=== PATIENT | female | born 1970 | race Caucasian/White ===

== ENCOUNTER 2017-03-11 13:52 | Emergency (ER) | payer MEDICAID ==
[2017-03-11 14:08] VITALS: TEMP 98.4; O2SAT 100
[2017-03-11] MEDS ORDERED: Sodium Chloride 0.9% 1,000 ML IV ONE (14:26)
[2017-03-11] MEDS ORDERED: Sodium Chloride 0.9% 1,000 ML ONE (14:34)
--- NOTE | 2017-03-11 14:36 | C.PDOC ---
History Of Present Illness 46 yr old female presents to the ER with complaints of cramping abdominal pain, radiating to the back since yesterday. Patient also reports of several episodes of watery, non bloody diarrhea and had mild nausea with an episode of vomiting this morning. Denies fever, chest pain, SOB, dysuria, weakness or numbness. Time Seen by Provider: 03/11/17 14:21 Chief Complaint (Nursing): Abdominal Pain History Per: Patient History/Exam Limitations: no limitations Onset/Duration Of Symptoms: Days (1) Past Medical History Reviewed: Historical Data, Nursing Documentation, Vital Signs Vital Signs: Last Vital Signs Temp 98.4 F 03/11/17 14:06 Pulse 65 03/11/17 17:08 Resp 20 03/11/17 17:08 BP 110/62 03/11/17 17:08 Pulse Ox 100 03/11/17 17:08 Family History: States: No Known Family Hx Review Of Systems Except As Marked, All Systems Reviewed And Found Negative. Constitutional: Negative for: Fever Cardiovascular: Negative for: Chest Pain Respiratory: Negative for: Shortness of Breath Gastrointestinal: Positive for: Nausea, Vomiting, Abdominal Pain, Diarrhea Genitourinary: Negative for: Dysuria Musculoskeletal: Positive for: Back Pain Neurological: Negative for: Weakness, Numbness Physical Exam - Physical Exam Appears: Non-toxic, No Acute Distress Skin: Warm, Dry, No Rash Head: Atraumatic, Normacephalic Oral Mucosa: Dry Chest: Symmetrical, No Tenderness Cardiovascular: Rhythm Regular, No Murmur Respiratory: Normal Breath Sounds, No Rales, No Rhonchi, No Wheezing Gastrointestinal/Abdominal: Normal Exam, Soft, No Tenderness, No Guarding, No Rebound Extremity: Normal ROM, No Swelling Neurological/Psych: Oriented x3, Normal Speech, Normal Motor ED Course And Treatment - Laboratory Results Result Diagrams: 03/11/17 14:48 03/11/17 14:48 Lab Interpretation: No Acute Changes Interpretation Of Abnormal: Urine positive nitrites with WBC 12 and many bacteria O2 Sat by Pulse Oximetry: 100 Pulse Ox Interpretation: Normal Progress Note: 4:35 Patient continues to c/o back pain. Urine culture obtained. She has no further diarrhea and is ambulatory to the bathroom without difficulty. Reevaluation Time: 17:32 Reassessment Condition: Improved Medical Decision Making Medical Decision Making: PLAN: * CBC * CMP * Urinalysis * Bentyl IM * Zofran IV * Sodium Chloride IV Disposition Counseled Patient/Family Regarding: Studies Performed, Diagnosis, Need For Followup, Rx Given - Disposition Referrals: Vince Martinez MD [Staff Provider] - Disposition: HOME/ ROUTINE Disposition Time: 17:32 Condition: IMPROVED Prescriptions: Ciprofloxacin [Cipro] 1 tab PO BID #10 tab Ondansetron ODT [Zofran ODT] 1 odt PO BID PRN #6 odt PRN Reason: Nausea/Vomiting Instructions: Urinary Tract Infection in Women (ED), Acute Diarrhea (ED) - Clinical Impression Clinical Impression: UTI (urinary tract infection), Diarrhea - Scribe Statement The provider has reviewed the documentation as recorded by the Navneet Ly Provider Attestation: All medical record entries made by the Navneet were at my direction and personally dictated by me. I have reviewed the chart and agree that the record accurately reflects my personal performance of the history, physical exam, medical decision making, and the department course for this patient. I have also personally directed, reviewed, and agree with the discharge instructions and disposition.
[2017-03-11 14:53] LABS: BASO % 0.2 % (0.0-2.0); EOS % 0.3 % (0.0-4.0); HEMATOCRIT 36.7 % (34.0-47.0); LYMPH # 1.1 K/uL (1.0-4.3); LYMPH % 15.4 % (20.0-40.0); MEAN CELL VOLUME 88.6 fL (81.0-99.0); MEAN CORPUSCULAR HEMOGLOBIN 29.5 pg (27.0-31.0); MEAN CORPUSCULAR HGB CONC 33.2 g/dL (33.0-37.0); MONO # 0.7 K/uL (0.0-0.8); MONO % 9.9 % (0.0-10.0); NRBC % 0.1 % (0.0-2.0); RED CELL DISTRIBUTION WIDTH 12.7 % (11.5-14.5); WHITE BLOOD COUNT 7.1 K/uL (4.8-10.8)
[2017-03-11 15:07] LABS: CHLORIDE 99 mmol/L (98-107); POTASSIUM 4.1 mmol/L (3.6-5.2); SODIUM 135 mmol/L (132-148)
[2017-03-11 15:09] LABS: ALKALINE PHOSPHATASE 85 U/L (38-126); AST/SGOT 33 U/L (14-36); BILIRUBIN,TOTAL 1.1 mg/dL (0.2-1.3); CARBON DIOXIDE 27 mmol/L (22-30); GFR AFRICAN-AMERICAN > 60; TOTAL PROTEIN 7.8 g/dL (6.3-8.3)
[2017-03-11 15:10] LABS: ALT/SGPT 32 U/L (9-52); BLOOD UREA NITROGEN 12 mg/dL (7-17); CALCIUM 8.3 mg/dl (8.6-10.4); GLUCOSE,RANDOM 99 mg/dL (65-105)
[2017-03-11 15:27] LABS: RBC URINE 12 /hpf (0-3); URINE BACTERIA MANY (<OCC); URINE BILIRUBIN NEGATIVE (NEGATIVE); URINE BLOOD 2+ (NEGATIVE); URINE COLOR Yellow (YELLOW); URINE GLUCOSE (UA) NORMAL (Normal); URINE KETONE TRACE mg/dL (NEGATIVE); URINE LEUKOCYTE ESTERASE 2+ Leu/uL (Negative); URINE PROTEIN NEGATIVE (NEGATIVE); URINE UROBILINOGEN NORMAL mg/dL (0.2-1.0); WBC URINE 12 /hpf (0-5)
[2017-03-11 17:08] VITALS: BP 110/62; PULSE 65; RESP 20
== END 2017-03-11 17:51 | disposition home or self-care (01) ==
LOC: C.ER 13:52
DX: N39.0 Urinary tract infection, site not specified (principal); B96.20 Unspecified Escherichia coli [E. coli] as the cause of diseases classified elsewhere; R19.7 Diarrhea, unspecified
CPT/HCPCS: 80053; 81001; 83690; 85025; 87086; 96361; 96372; 96374; 99285; J0500; J2405; J7040